=== PATIENT | female | born 1990 | race African-American/Black ===

== ENCOUNTER 2016-09-03 20:09 | Emergency (ER) | payer OTHER ==
[~2016-09-03 20:09] MED LIST: ACET500CAP; HORMONE
== END 2016-09-03 21:10 | disposition left against medical advice (07) ==
LOC: ER 20:09
DX: S01.81XA Laceration without foreign body of other part of head, initial encounter (principal); S05.11XA Contusion of eyeball and orbital tissues, right eye, initial encounter; H11.31 Conjunctival hemorrhage, right eye; Z88.0 Allergy status to penicillin; Z88.5 Allergy status to narcotic agent; Z91.040 Latex allergy status; Z91.013 Allergy to seafood; X58.XXXA Exposure to other specified factors, initial encounter
CPT/HCPCS: 99284